=== PATIENT | female | born 1990 | race Caucasian/White ===

== ENCOUNTER 2018-10-02 13:38 | Inpatient (IN) | payer OTHER ==
[~2018-10-02] VITALS: Ht 160 cm; Wt 69.5 kg
[~2018-10-02 13:38] MED LIST: PREN1TAB17 PO
[2018-10-02 13:49] VITALS: Ht 160 cm; Wt 69.5 kg
[2018-10-02 13:58] VITALS: BP 112/65; PULSE 81; RESP 20
[2018-10-02] MEDS ORDERED: BUTORPHANOL 2 MG INJ IV PRN (14:00)
[2018-10-02] MEDS ORDERED: CARBOPROST 250 MCG INJ IM PRN (14:00)
[2018-10-02] MEDS ORDERED: MISOPROSTOL 200 MCG TAB PR PRN (14:00)
[2018-10-02] MEDS ORDERED: IBUPROFEN 600 MG TAB PO PRN (14:00)
[2018-10-02] MEDS ORDERED: METHYLERGONOVINE 0.2 MG INJ IM PRN (14:00)
[2018-10-02] MEDS ORDERED: LIDOCAINE 1% (MPF) 30 ML INJ INJ PRN (14:00)
[2018-10-02] MEDS ORDERED: OXYCODONE/ASPIRIN (4.88/325) TAB PO PRN (14:00)
[2018-10-02] MEDS ORDERED: OXYTOCIN 30 UNITS/LR 500 ML IV SCH ×3 (14:00→21:00)
[2018-10-02] MEDS ORDERED: OXYTOCIN 30 UNITS/LR 500 ML IV PRN (14:00)
[2018-10-02] MEDS: LACTATED RINGER'S 1,000 ML IV SCH ×3 (14:21→23:09)
--- NOTE | 2018-10-02 15:25 | HP ---
Date/Time of Note Date/Time of Note DATE: 10/02/18 TIME: 15:24 OB - History Hx of Present Free Text/Dictation @40+wks GA in labor : 1 Para: 0 Care: Good Care Ultrasounds: Normal mid trimester US Obstetrical Complications: None Medical Complications: None Past Family/Social History * Past Medical, Surgical, Family and Obstetric Histories reviewed from [facility]. OB Admission Exam Vital Signs Vital Signs Vital Signs Date Temp Pulse Resp B/P (MAP) Pulse Ox O2 O2 Flow FiO2 Time Delivery Rate 10/02/18 98.1 81 20 112/65 Room Air 13:58 (81) Physical Exam Abdomen: WNL Reflexes: Normal Cervical Dilatation: Fingertip Effacement: 50% Station: -1 Membranes: Intact Heart Rate: 140's Accelerations: Accelerations Present Decelerations: No Decelerations Varibility: Moderate Contractions on Admission: None Last 72 hours Lab Results OB Assessment/Plan Reason for admission: observation Other Assessment: PMH Denies PSH Denies Allergy NKDA Plan: Expectant Management KATHI LARA M.D. October 02, 2018 15:25
[2018-10-02] MEDS ORDERED: MISOPROSTOL 50 MCG CAPSULE PO SCH (16:00)
[2018-10-02] MEDS: MISOPROSTOL 50 MCG CAPSULE PO SCH ×2 (16:07→20:00)
--- NOTE | 2018-10-02 21:14 | PREAC ---
Date/Time of Note Date/Time of Note DATE: 10/02/18 TIME: 21:13 Anesthesia Eval and Record Evaluation Time Pre-Procedure Interview DATE: 10/02/18 TIME: 21:13 Age 28 Sex female NPO: Other (na) Preoperative diagnosis labor pain Planned procedure epidural Past Medical History Past Medical History: None Surgery & Anesthesia Issues No known issue Meds Anticoagulation: No Beta Carlos within 24 hr: No Reason Beta Carlos not given: Pt. not on B-Carlos Reported Medications Vit-Iron Fumarate-FA ( Tablet) 1 Each Tablet, 1 TAB PO DAILY, TAB 02/02/14 Current Medications Lactated Ringer's 1,000 ml @ 125 mls/hr Q8H IV Last administered on 10/02/18at 20:48; Admin Dose 125 MLS/HR; Start 10/02/18 at 13:51 Butorphanol Tartrate (Stadol) 2 mg Q2H PRN IV .PAIN SCALE 6-10; Start 10/02/18 at 14:00 Lidocaine (Xylocaine 1% (Mpf)) 30 ml ONCE PRN INJ .EPISIOTOMY; Start 10/02/18 at 14:00 Oxytocin/Lactated Ringer's 500 ml @ 500 mls/hr ONCE POST IV ; Start 10/02/18 at 14:00 Oxytocin/Lactated Ringer's 500 ml @ 125 mls/hr POST IV ; Start 10/02/18 at 14:00 Ibuprofen (Motrin) 600 mg ONCE PRN PO .PAIN 1-5; Start 10/02/18 at 14:00 Oxycodone/Aspirin (Percodan) 2 tab ONCE PRN PO .PAIN 6-10; Start 10/02/18 at 14:00 Oxytocin/Lactated Ringer's 500 ml @ 0 mls/hr ONCE PRN IV .VAGINAL BLEEDING; Start 10/02/18 at 14:00 Methylergonovine Maleate (Methergine) 0.2 mg ONCE PRN IM .VAGINAL BLEEDING; Start 10/02/18 at 14:00 Carboprost Tromethamine (Hemabate) 250 mcg ONCE PRN IM .VAGINAL BLEEDING; Start 10/02/18 at 14:00 Misoprostol (Cytotec) 1,000 mcg ONCE PRN VA .VAGINAL BLEEDING; Start 10/02/18 at 14:00 Misoprostol (Cytotec 50 Mcg Capsule) 50 mcg Q4H PO Last administered on 10/02/18at 16:07; Admin Dose 50 MCG; Start 10/02/18 at 16:00 Oxytocin/Lactated Ringer's 500 ml @ 0 mls/hr FOR AUGMENTATION IV ; Start 10/02/18 at 21:00 Meds reviewed: Yes Allergies Coded Allergies: No Known Drug Allergies (Unverified Allergy, Unknown, 04/16/16) Allergies Reviewed: Yes Labs/Studies Labs Reviewed: Reviewed by anesthesiologist Result Diagram: 10/02/18 1450 Laboratory Tests 10/02/18 14:50 Blood Bank Test 10/02/18 14:50 Antibody Screen NEGATIVE Blood Type O POSITIVE Rh Immune Globulin Candidate NO test: N/A Pre-procedure Exam Last vitals Vital Signs Date Temp Pulse Resp B/P (MAP) Pulse Ox O2 O2 Flow FiO2 Time Delivery Rate 10/02/18 98.1 81 20 112/65 Room Air 13:58 (81) Airway: Adequate mouth opening, Adequate thyromental dist Mallampati: Mallampati II Teeth: Normal Lung: Normal Heart: Normal ASA Physical Status ASA physical status: 2 Emergency: None Pre-operative Attestations Prior to commencing anesthesia and surgery, the patient was re-evaluated, there was verification of: *The patient's identity *The results of appropriate recent lab work and preoperative vital signs *The above evaluation not changing prior to induction *Anesthetic plan, risk benefits, alternative and complications discussed with patient/family; questions answered; patient/family understands, accepts and wishes to proceed. WARREN DIETRICH DO October 02, 2018 21:14
[2018-10-02] MEDS ORDERED: FENTAnyl 2MCG/ML-ROPIV 0.2% 100 ML ONE (21:16)
[2018-10-02] MEDS ORDERED: FENTAnyl 50 MCG/ML VIAL ONE (21:16)
[2018-10-02] MEDS ORDERED: FENTAnyl 2MCG/ML-ROPIV 0.2% 100 ML BAG EPI SCH (21:30)
[2018-10-02] MEDS ORDERED: NALOXONE (0.4 MG/ML) INJ IV PRN (21:30)
[2018-10-03] MEDS ORDERED: OXYTOCIN 30 UNITS/LR 500 ML IV SCH (03:24)
--- NOTE | 2018-10-03 03:24 | LDN ---
Date/Time of Note Date/Time of Note DATE: 10/03/18 TIME: 03:23 Delivery Summary Weeks of Gestation 40 Placenta Delivered: Spontaneously Meconium: none Episiotomy: No Perineal laceration: 1 Laceration repair: 1st degree perineal laceration with 4-0 chromic Anesthesia type: Epidural Estimated blood loss: 150 Sponge & Needle done & correct: Yes All needle counts correct: Yes Any foreign bodies felt in the: No Delivery Information Sex Sex: female Apgars 1 Minute: 8 5 Minute: 9 Suctioning Nose & mouth suctioned at margot: No Delee suction performed: No Umbilical Cord Umbilical cord with: 3 Vessels Cord presentations: nuchal cord Nuchal cord present X: 1 Cord Blood was obtained: Yes ANDER PORTER MD October 03, 2018 03:24
[2018-10-03] MEDS ORDERED: OXYTOCIN 30 UNITS/LR 500 ML IV PRN (03:30)
[2018-10-03] MEDS ORDERED: MISOPROSTOL 200 MCG TAB PR PRN (03:30)
[2018-10-03] MEDS ORDERED: METHYLERGONOVINE 0.2 MG INJ IM PRN (03:30)
[2018-10-03] MEDS ORDERED: LANOLIN HPA 1 PKT TOP PRN (03:30)
[2018-10-03] MEDS ORDERED: ACETAMINOPHEN 325 MG TAB PO PRN (03:30)
[2018-10-03] MEDS ORDERED: BENZOCAINE 20% 56 ML SPRAY TOP PRN (03:30)
[2018-10-03] MEDS ORDERED: WITCH HAZEL/GLYCERIN PAD PR PRN (03:30)
[2018-10-03] MEDS ORDERED: CARBOPROST 250 MCG INJ IM PRN (03:30)
[2018-10-03] MEDS ORDERED: NACL 0.9% 3 ML SYG IV SCH (03:30)
[2018-10-03] MEDS ORDERED: OXYCODONE/ASPIRIN (4.88/325) TAB PO PRN (03:30)
[2018-10-03 05:15] VITALS: BP 116/63; PULSE 85; RESP 18
[2018-10-03] MEDS: IBUPROFEN 600 MG TAB PO SCH ×4 (06:00→23:59)
[2018-10-03] MEDS: OXYCODONE/ASPIRIN (4.88/325) TAB PO PRN (06:37)
[2018-10-03 08:32] VITALS: BP 113/66; PULSE 94; RESP 20
[2018-10-03] MEDS: SENNA/DOCUSATE NA (8.6MG/50MG) TAB PO SCH ×2 (09:14→20:50)
[2018-10-03 11:20] VITALS: BP 110/67; PULSE 72; RESP 18
--- NOTE | 2018-10-03 14:30 | PAC ---
Date/Time of Note Date/Time of Note DATE: 10/03/18 TIME: 14:29 Post-Anesthesia Notes Post-Anesthesia Note Last documented vital signs Vital Signs Date Temp Pulse Resp B/P (MAP) Pulse Ox O2 O2 Flow FiO2 Time Delivery Rate 10/03/18 98.2 94 20 113/66 Room Air 08:32 (82) Activity: WNL Respiratory function: WNL Cardiovascular function: WNL Mental status: Baseline Pain reasonably controlled: Yes Hydration appropriate: Yes Nausea/Vomiting absent: Yes WARREN DIETRICH DO October 03, 2018 14:30
[2018-10-03 16:50] VITALS: BP 107/64; PULSE 75; RESP 18
[2018-10-03 19:30] VITALS: BP 114/71; PULSE 83; RESP 19
[2018-10-04] VITALS: BP 121/64; PULSE 64; RESP 18
[2018-10-04 04:00] VITALS: BP 106/59; PULSE 75; RESP 19
[2018-10-04] MEDS: IBUPROFEN 600 MG TAB PO SCH ×4 (05:43→23:34)
--- NOTE | 2018-10-04 06:03 | PD.PPDC ---
APPLIED BEHAVIOR SCIENCE SPECIALIST Discharge Instruction Condition [id number] Patient Condition: [id number] Fair Diet Neqxc8Oc Diet: Kheit2w Resume Regular Diet Activity/Restrictions [id number] Activity: Vxpav7u Normal Activity May Shower [id number] Restrictions: Lnzhk2r No Exercising No Lifting No Driving No Sexual Activity Nothing in the Vagina No [place] No Tampons, douche Follow-up Follow-up with Physician: 3, Week/Weeks Return to clinic for [id number] CARE PROVIDER Instructions: Jobys9p Fever greater than 101 Chills Worsening abdominal pain Excessive Vaginal Bleeding More than 2 pads per hour Unable to tolerate diet Ithyx3As OB Instructions: Qbgyk2q Breast Tenderness Depression Blurried Vision Headache [id number] Surgical Instructions: Ptavz7d Incisional Drainage Incisional Redness ANDER PORTER MD October 04, 2018 06:03
--- NOTE | 2018-10-04 06:05 | DS ---
Date/Time of Note Date/Time of Note DATE: 10/04/18 TIME: 06:04 Obstetrical Discharge Record Final Diagnosis Final Diagnosis: Term delivered Vaginal Delivery Obstetrical Delivery: Spontaneous, Laceration, Repaired Condition on Discharge Physical Assessment Last Vitals: stable afebrile Voiding: Yes Bowel Movement: Yes Breast: Soft, non-tender, Filling Fundus: Firm Abdomen and Incision: soft nt Calf Tenderness: No Patient Condition: Fair ANDER PORTER MD October 04, 2018 06:05
[2018-10-04 08:00] VITALS: BP 104/69; PULSE 60; RESP 16
[2018-10-04] MEDS: SENNA/DOCUSATE NA (8.6MG/50MG) TAB PO SCH ×2 (09:18→21:00)
[2018-10-04 15:55] VITALS: BP 101/62; PULSE 76; RESP 18
[2018-10-04] MEDS: OXYCODONE/ASPIRIN (4.88/325) TAB PO PRN (16:19)
[2018-10-04 19:30] VITALS: BP 102/61; PULSE 72; RESP 20
[2018-10-05 04:00] VITALS: BP 112/62; PULSE 75; RESP 19
[2018-10-05] MEDS: IBUPROFEN 600 MG TAB PO SCH ×2 (05:23→12:21)
[2018-10-05 08:15] VITALS: BP 98/74; PULSE 60; RESP 18
[2018-10-05] MEDS: SENNA/DOCUSATE NA (8.6MG/50MG) TAB PO SCH (08:47)
--- NOTE | 2018-10-06 15:38 | DELSUM ---
Delivery Summary A-C Datetime Report Generated by CPN: 10/06/2018 15:38 DELIVERY PERSONNEL Assistant Teaching Professor: Dries, Bonifacio MATERNAL INFORMATION Delivery Anesthesia: Epidural Medications in Delivery: LR WITH 30 UNITS PITOCIN Delivery QBL (ml): 150 Placenta Cultured: No Maternal Complications: None LABOR SUMMARY EDC: 09/30/2018 00:00 No. Babies in Womb: 1 Attempted: No Labor Anesthesia: Epidural LABOR INFORMATION Reason for Induction: Postterm Onset of Labor: 10/02/2018 20:23 Complete Dilatation: 10/03/2018 03:02 Cervical Ripening Agents: Cytotec @ Oxytocin: Augmentation Group B Beta Strep: Negative Antibiotics # of Doses: 0 Steroids Given: None Reason Steroids Not Administered: Not Applicable MEMBRANES Membranes Rupture Method: Spontaneous Rupture of Membranes: 10/03/2018 02:56 Length of Rupture (hr): 0.23 Amniotic Fluid Color: Clear Amniotic Fluid Amount: Small Amniotic Fluid Odor: None STAGES OF LABOR Stage 1 hr: 6 Stage 1 min: 39 Stage 2 hr: 0 Stage 2 min: 8 Stage 3 hr: 0 Stage 3 min: 4 Total Time in Labor hr: 6 Total Time in Labor min: 51 VAGINAL DELIVERY Episiotomy: None Laceration Extension: First Degree Laceration Type: Perineal Laceration Repair: Yes Initial Vag Sponge Count: 10 Final Vag Sponge Count: 10 Initial Vag Sharps Count: 1 Final Vag Sharps Count: 2 Sponge Count Correct: Yes; Vaginal Sweep Performed Sharps Count Correct: Yes BABY A INFORMATION Delivery Date/Time: 10/03/2018 03:10 Method of Delivery: Vaginal Born in Route : No : N/A Forceps: N/A Vacuum Extraction: N/A Shoulder Dystocia : N/A SHOULDER DYSTOCIA BABY A Delivery Date/Time: 10/03/2018 03:10 PRESENTATION/POSITION BABY A Presentation: Cephalic Cephalic Presentation: Vertex Vertex Position: Left Occipital Anterior Breech Presentation: N/A PLACENTA INFORMATION BABY A Placenta Delivery Time : 10/03/2018 03:14 Placenta Method of Delivery: Spontaneous Placenta Status: Delivered SCORES BABY A Heart Rate 1 min: >100 bpm Resp Effort 1 min: Good Cry Reflex Irritability 1 min: Cough/Sneeze/Pulls Away Muscle Tone 1 min: Active Motion Color 1 min: Blue/Pale Resuscitation Effort 1 min: Tactile Stimulation SCORE 1 MIN: 8 Heart Rate 5 min: >100 bpm Resp Effort 5 min: Good Cry Reflex Irritability 5 min: Cough/Sneeze/Pulls Away Muscle Tone 5 min: Active Motion Color 5 min: Body [place], Extremit Blue Resuscitation Effort 5 min: Tactile Stimulation SCORE 5 MIN: 9 INFANT INFORMATION BABY A Gestational Age at Delivery: 40.3 Gestational Status: Full Term- 39- 40.6 Weeks Infant Outcome : Liveborn Condition : Stable Sex: Female IDENTIFICATION/MEDS BABY A ID Band Number: [id number] ID Band Location: Right Leg; Left Arm Sensor Applied: Yes Sensor Number: [id number] Sensor Location : Cord Clamp Vitamin K Given : Not Given Erythromycin Given: Not Given WEIGHT/LENGTH BABY A Birthweight (gm): 3425 Weight (lb): 7 Weight (oz): 9 Length (in): 19.50 Length (cm): 49.53 CORD INFORMATION BABY A No. Cord Vessels: 3 Nuchal Cord : Around Neck x1, Loose Cord Blood Taken: Yes Infant Suction: Mouth; Nose
== END 2018-10-05 15:20 | disposition home or self-care (01) | DRG 807 ==
LOC: L-D 13:38 → PP1 10-03 05:08
PROVIDERS: ADMIT Obstetrics & Gynecology; ATTEND Obstetrics & Gynecology
PROC: 10E0XZZ Delivery of Products of Conception, External Approach (ICD-10-PCS; principal; 2018-10-03)
PROC: 0HQ9XZZ Repair Perineum Skin, External Approach (ICD-10-PCS; 2018-10-03)
DX: O70.0 First degree perineal laceration during delivery (principal); Z37.0 Single live birth; O69.81X0 Labor and delivery complicated by cord around neck, without compression, not applicable or unspecified; Z3A.40 40 weeks gestation of pregnancy
CPT/HCPCS: 62322; 76815; 85025; 85610; 85730; 86592; 86850; 86900; 86901; 87340; J2590; J3010; J7120